=== PATIENT | female | born 1955 | race Caucasian/White ===

== ENCOUNTER 2021-09-11 13:53 | Outpatient (CLI) | payer OTHER, SELFPAY ==
[2021-09-11 15:38] LABS: SARS-CoV-2 RNA PCR Positive (Negative)
== END 2021-09-11 13:54 | disposition home or self-care (01) ==
PROVIDERS: PCP Physician Assistant; Visit Provider Physician Assistant
DX: U07.1 COVID-19 (principal); B34.9 Viral infection, unspecified
CPT/HCPCS: C9803; U0003; U0005

== ENCOUNTER 2022-10-02 16:38 | Emergency (ER) | payer OTHER, SELFPAY ==
[2022-10-02 16:52] VITALS: BP 251/89; PULSE 72; RESP 18; TEMP 36.8; O2SAT 98
--- NOTE | 2022-10-02 17:57 | PC.NURSE ---
Manual BP 235/130. Will go to ER for treatment.
--- NOTE | 2022-10-02 18:02 | ED.GENADULT ---
HPI - General Adult General Chief complaint: Skin/Abscess/Foreign Body Stated complaint: Scratch on Left Arm/Rodent Source: patient Mode of arrival: ambulatory Limitations: no limitations History of Present Illness HPI narrative: Patient presents for evaluation after experiencing a rat bite/scratch last night. [place] She found out a family member was feeding the rat nuts. Patient woke from sleep to suspected bite/scratch. She contacted her insurance provider and they advised she come in for further evaluation. She is not diabetic. She denies any purulence from the affected area. No fever, chills, nausea, vomiting. She does not smoke. She has an underlying history of hypertension and has intermittent problems with compliance. She has not taken her blood pressure medications today. On arrival blood pressure is 251/89. She denies any chest pain or shortness of breath but states she can normally told her blood pressure is elevated. She is not experiencing any sensation that would cause her to think that her blood pressure would be that high at the present time. Related Data Home Medications Medication Instructions Recorded Confirmed amlodipine 10 mg tablet mg 10/02/22 hydrochlorothiazide 12.5 mg tablet mg 10/02/22 metoprolol tartrate 50 mg tablet mg 10/02/22 Allergies Allergy/AdvReac Type Severity Reaction Status Date / Time NKDFA Allergy Mild Uncoded 02/06/05 13:02 Review of Systems Review of Systems: CONSTITUTIONAL: Denies fever, chills, or sweats. EYES: Denies visual changes, redness, or discharge. ENT: Denies rhinorrhea, congestion, sore throat, or otalgia. CARDIOVASCULAR: Denies chest pain, palpitations, or edema. RESPIRATORY: Denies cough or dyspnea. GASTROINTESTINAL: Denies abdominal pain, nausea, vomiting, or diarrhea. GENITOURINARY: Denies dysuria or hematuria. SKIN: Reports wounds to the left forearm. MUSCULOSKELETAL: Denies back pain, joint pain, or myalgia. NEUROLOGIC: Denies headache, numbness, dizziness, or weakness. PSYCHIATRIC: Denies anxiety or depression. REPLACED BY [facility] Past Medical History Medical History Hypertension Surgical History Surgical History History of cholecystectomy Family History Family History Mother Family history non-contributory Social History Social History Smoking status: Never smoker Substance use: never Living arrangements: with family Sexual Orientation (if Verbalized by the Patient): Straight or Heterosexual Spiritual care concerns: No Exam Narrative: GENERAL: Well-appearing, well-nourished, and in no acute distress. HEAD: Normocephalic, atraumatic. EYES: PERRLA and EOMI. ENT: Nares clear, no rhinorrhea or epistaxis. Mucous membranes moist. Oropharynx without tonsillar hypertrophy exudate or other lesions. Bilateral TMs pearly garcai nonbulging NECK: Supple. No adenopathy or masses. No carotid bruits or JVD CHEST: Clear to auscultation. No respiratory distress. No wheezes rales or rhonchi HEART: Regular rate and rhythm. No murmur heard. Normal peripheral pulses. ABDOMEN: Soft, nontender, nondistended, normal active bowel sounds. EXTREMITIES: Normal range of motion. No edema. SKIN: There are 2 pinpoint areas of erythema to the left forearm consistent with puncture arce NEURO: No focal deficits. Alert and oriented x3. PSYCH: Normal mood and affect. Course Course Emergency Course: This is a 66-year-old female who presented for evaluation of wounds following a rat bite/scratch last night. On arrival her blood pressure was markedly elevated. I rechecked it manually and had a reading of 235/130. Advised she go to the hospital for further evaluatio
== END 2022-10-02 18:03 | disposition short-term general hospital (02) ==
PROVIDERS: Emergency Provider Nurse Practitioner
DX: I16.0 Hypertensive urgency (principal); S51.852A Open bite of left forearm, initial encounter; W53.11XA Bitten by rat, initial encounter; I10 Essential (primary) hypertension
CPT/HCPCS: 99212; G0463